=== PATIENT | female | born 1970 | race Caucasian/White ===

== ENCOUNTER → 2017-01-07 | Outpatient (CLI) | payer OTHER ==
--- NOTE | 2017-01-09 09:36 | MM ---
Reason for exam: follow-up at short interval from prior study. Last mammogram was performed 1 year and 1 month ago. History: Took hormonal contraceptives for 5 years. Physical Findings: Nurse did not find any significant physical abnormalities on exam. [facility] Diagnostic Mammo w CAD WILI Bilateral CC and MLO view(s) were taken. Prior study comparison: December 15, 2015, bilateral MG diagnostic mammo w CAD WILI. The breast tissue is heterogeneously dense. This may lower the sensitivity of mammography. Focal asymmetry right MLO view middle position, new. This finding is changed when compared with previous exams. These results were verbally communicated with the patient and result sheet given to the patient on 01/07/17. ASSESSMENT: Probably benign, BI-RAD 3 RECOMMENDATION: Follow-up diagnostic mammogram of the right breast in 6 months.
--- NOTE | 2017-01-09 09:39 | USB ---
Reason for exam: follow-up at short interval from prior study. History: Took hormonal contraceptives for 5 years. US Breast Limited BILAT Left breast ultrasound includes all four quadrants, the retroareolar region and axilla. Finding demonstrate a 0.6 x 0.3 x 0.5 oval,cystic, lesion at 1 o'clock, a 0.8 x 0.3 x 0.8cm oval, cystic lesion at 3 o'clock, and a 0.5 x 0.3 x 0.4cm oval, cystic lesion at 11 o'clock. Right breast ultrasound demonstrates a 0.5 x 0.1 x 0.4cm oval, too small to characterize lesion at 9 o'clock, a 0.5 x 0.2 x 0.4 cm oval, cystic lesion at 9 o'clock, and a 0.9 x 0.5 x 0.8 cm oval, cystic lesion at 11 o'clock. These results were verbally communicated with the patient and result sheet given to the patient on 01/07/17. ASSESSMENT: Benign, BI-RAD 2 RECOMMENDATION: Follow-up diagnostic mammogram of the right breast in 6 months.
== END | disposition home or self-care (01) ==
LOC: RADMAMWWP 14:53
PROVIDERS: ATTEND Family Medicine
DX: N60.02 Solitary cyst of left breast (principal)
CPT/HCPCS: 76642; G0204